=== PATIENT | female | born 1930 | race Two or more races ===

== ENCOUNTER → 2016-03-25 | Outpatient (CLI) | payer MEDICARE, OTHER ==
[~2016-03-25] MED LIST: CALC1TAB98 PO; CAND32TA8 PO; CITA10TA84 PO; CYAN100T PO; ESOM40CA PO; EZET10TA3 PO; FLEC50TA PO; GLUC1CAP17 PO; HYDR12.58 PO; IPRA30SP NASAL; MULT1TAB6 PO; NIFE30TA60 PO; PRAV20TA63 PO; RANI150T5 PO
--- NOTE | 2016-03-26 08:29 | RADRPT ---
PROCEDURE: XR right knee. CLINICAL INDICATION: Knee pain. TECHNIQUE: Three views are available for review. COMPARISON: 11/14/2014 FINDINGS: There is a total knee replacement. There is no evidence of loosening of the prosthesis. The osseous structures are normal in mineralization, architecture and alignment No acute fracture or dislocation is seen.No osseous lesions are identified. The soft tissues are unremarkable . IMPRESSION: Unremarkable total knee replacement. RPTAT: [facility] .Christian Tabares MD, MD Date Time Electronically viewed and signed by .Christian Tabares MD, on 03/26/2016 08:29 .B/
--- NOTE | 2016-03-26 08:32 | RADRPT ---
PROCEDURE: XR left knee. CLINICAL INDICATION: Knee pain TECHNIQUE: AP weightbearing, PA weightbearing, lateral weightbearing and sunrise views are availab le for review. COMPARISON: None available FINDINGS: There is moderate osteoarthrosis involving the lateral tibial femoral compartment and mild osteoarth rosis involving the patellofemoral compartment and the medial tibial femoral compartment. This is as sociated with joint space narrowing, subchondral sclerosis and osteophytosis. There is a suprapatell ar joint effusion. There is chondrocalcinosis with medial and lateral meniscal calcification. There is otherwise normal mineralization, architecture and alignment. No fractures are identified. No osseous lesions are identified. The soft tissues are unremarkable. IMPRESSION: Moderate osteoarthrosis involving the lateral tibial femoral compartment and mild osteoarthrosis inv olving the patellofemoral compartment and the medial tibial femoral compartment. Small suprapatellar joint effusion Chondrocalcinosis RPTAT: [facility] .Christian Tabares MD, MD Date Time Electronically viewed and signed by .Christian Tabares MD, on 03/26/2016 08:31 .B/
== END | disposition home or self-care (01) ==
LOC: HKI 09:25
PROVIDERS: ATTEND Orthopaedic Surgery
DX: M17.12 Unilateral primary osteoarthritis, left knee (principal); Z96.651 Presence of right artificial knee joint
CPT/HCPCS: 73562; 73564; G0463